=== PATIENT | female | born 1950 | race Caucasian/White ===

== ENCOUNTER 2024-10-16 08:18 | Outpatient (OUT) | payer MEDICARE, OTHER, SELFPAY ==
[2024-10-16 09:02] LABS: Hematocrit 39.8 % (36.0-48.0); Hemoglobin 13.4 g/dL (12.0-16.0); Immature Granulocytes Abs Auto 0.01 10^3/uL (0.00-0.03); Immature Granulocytes Pct Auto 0.2 % (0.0-0.5); Lymphocytes Absolute Auto 1.7 10^3/uL (1.2-3.8); Mean Corpuscular HGB Conc 33.7 g/dL (29.9-35.2); Mean Corpuscular Hemoglobin 29.4 pg (26.7-34.0); Mean Corpuscular Volume 87.3 fL (81.0-99.0); Platelet Count 331 10^3/uL (150-450); Red Blood Count 4.56 10^6/uL (4.20-5.40); White Blood Count 5.8 10^3/uL (4.0-11.0)
[2024-10-16 09:20] LABS: Alanine Aminotransferase 30 U/L (14-59); Albumin Globulin Ratio 1.0; Albumin Level 3.7 g/dL (3.4-5.0); Alkaline Phosphatase 100 U/L (46-116); Anion Gap 10.1; Aspartate Amino Transferase 22 U/L (15-37); Blood Urea Nitrogen 11.0 mg/dL (7.0-18.0); Calcium 8.8 mg/dL (8.5-10.1); Carbon Dioxide 31.0 mmol/L (21.0-32.0); Chloride 107 mmol/L (98-107); Estimated GFR (African America >60 (>=60 mL/min/1.73m^2); Estimated GFR (Non-African Ame >60 (>=60 mL/min/1.73m^2); Globulin 3.8 g/dL; Glucose 100 mg/dL (74-106); Magnesium 2.2 mg/dL (1.8-2.4); Potassium 4.1 mmol/L (3.5-5.1); Sodium 144 mmol/L (136-145); Total Protein 7.5 g/dL (6.4-8.2); Uric Acid 4.2 mg/dL (2.6-6.0)
== END 2024-10-16 08:19 | disposition home or self-care (01) ==
LOC: LAB 08:30
PROVIDERS: PCP Family Medicine
DX: L50.1 Idiopathic urticaria (principal)
CPT/HCPCS: 36415; 80053; 80158; 83735; 84550; 85025

== ENCOUNTER 2024-11-17 14:50 | Outpatient (OUT) | payer MEDICARE, OTHER, SELFPAY ==
--- OUTSIDE RECORDS SUMMARY | 2024-11-17 14:53 | XMS_ITS | Encounter Summary ---
Author Organization [facility] Address [address] [place] [address] Care Team Providers Care Fish Header Name Role Phone Luciana Phan MD Primary Care Provider [phone] Claudette Buck OD Unavailable Encounter Details Date Type Department Care Team (Late st Contact Info) Description 10/30/2023 Orders Only [facility] [facility] [address] [place] [address] Kvng Villatoro MD [address] [facility] [address] [place] [address] Chronic idiopathic urticaria (Primary Dx); senior care current use of cyclosporine Social History Tobacco Use Types Packs/Day Years Used Date Smoking Tobacco: Never Smokeless Tobacco: Never Alcohol Use Standard Drinks/Week Comments Yes 0 (1 standard drink = 0.6 oz pure alcohol) Caffeine: 1-2 cups/day; tea 2-3 cups per/day, 1-2 drinks less than monthly in the past year AUDIT-C Answer Date Recorded Q1: How often do you have a drink containing alc ohol? Monthly or less 02/13/2023 Q2: How many drinks containi ng alcohol do you have on a typical day when you are drinking? 1 or 2 02/13/2023 Q3: How often do you have si x or more drinks on one occasion? Never 02/13/2023 Comments Unknown Sex and Gender Information Value Date Recorded Sex Assigned at Not on file Legal Sex Female 8:35 PM EDT Gender Identity Not on file Sexual Orientation Not on file documented as of this encounter Plan of Treatment Upcoming Encounters Date Type Department Care Team (Late st Contact Info) Description 11/25/2024 9:40 AM EDT Office Visit [facility] [place] [facility] [address] [place] [address] Kvng Villatoro MD [address] [place] [address] 11/25/2024 10:00 AM EDT Clinical Support [facility] [place] [facility] [address] [place] [address] 03/23/2025 10:45 AM EST Office Visit [facility] [address] [place] [address] Gil Zarate, [address] [place] [address] documented as of this encounter Procedures Procedure Name Priority Date/Time Associated Diagnosis Comments CYCLOSPORINE A THROUGH,BLOOD Routine 11/08/2023 8:51 AM EDT 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 CBC (INCLUDES DIFF/PLT) Routine 11/08/2023 8:51 AM EDT TSH Routine 11/08/2023 8:51 AM EDT COMPREHENSIVE METABOLIC PANEL Routine 11/08/2023 8:51 AM EDT documented in this encounter Results * TSH (11/08/2023 8:51 AM EDT) TSH 3.06 0.40 - 4.50 mIU/L [facility] 11/08/2023 8:51 AM EDT 11/08/2023 8:51 AM EDT Narrative [facility] - 11/09/2023 12:06 PM EDT FASTING:YES FASTING: YES Resulting Agency Comment Performing Organization Information Site ID: QPT Name: [facility] Address: [address] [place] [address], [address] [place] [address] Director: Buck Rajput MD us Kvng Villatoro MD LAB BLOOD ORDERABLES Final Re sult Performing Organization Address [facility] Co de Phone Number [facility] * (ABNORMAL) CBC and differential (11/08/2023 8:51 AM EDT) WHITE BLOOD CELL COUNT 7.6 3.8 - 10.8 Thousand/u L [facility] RED BLOOD CELL COUNT 4.88 3.80 - 5.10 Million/uL [facility] HEMOGLOBIN 14.6 11.7 - 15.5 g/dL [facility] HEMATOCRIT 43.8 35.0 - 45.0 % [facility] MCV 89.8 80.0 - 100.0 fL [facility] MCH 29.9 27.0 - 33.0 pg [facility] MCHC 33.3 32.0 - 36.0 g/dL [facility] RDW 12.3 11.0 - 15.0 % [facility] PLATELET COUNT 424(H) 140 - 400 Thousand/u L [facility] MPV 9.4 7.5 - 12.5 fL [facility] ABSOLUTE NEUTROPHILS 4,454 1,500 - 7,800 cells/uL [facility] ABSOLUTE LYMPHOCYTES 2,440 850 - 3,900 cells/uL [facility] ABSOLUTE MONOCYTES 562 200 - 950 cells/uL [facility] ABSOLUTE EOSINOPHILS 122 15 - 500 cells/uL [facility] ABSOLUTE BASOPHILS 23 0 - 200 cells/uL [facility] NEUTROPHILS 58.6 % [facility] LYMPHOCYTES 32.1 % [facility] MONOCYTES 7.4 % [facility] EOSINOPHILS 1.6 % [facility] BASOPHILS 0.3 % [facility] 11/08/2023 8:51 AM EDT 11/08/2023 8:51 AM EDT Narrative [facility] - 11/09/2023 12:06 PM EDT FASTING:YES FASTING: YES Resulting Agency Comment Performing Organization Information Site ID: QPT Name: [facility] Address: [address] [place] [address], [address] [place] [id number] Director: Buck Rajput MD us Kvng Villatoro MD LAB BLOOD ORDERABLES Final Re sult Performing Organization Address [facility] Co de Phone Number [facility] * Comprehensive metabolic panel (11/08/2023 8:51 AM EDT) Glucose 95 65 - 99 mg/dL [facility] Comment: Fasting reference interval BUN 14 7 - 25 mg/dL [facility] Creatinine 0.69 0.60 - 1.00 mg/dL [facility] EGFR 91 > OR = 60 mL/min/1. 73m2 [facility] BUN/CREATININE RATIO SEE NOTE: 6 - 22 (calc) [facility] Comment: Not Reported: BUN and Creatinine are within reference range. Sodium 143 135 - 146 mmol/L [facility] Potassium, Bld 4.5 3.5 - 5.3 mmol/L [facility] Chloride 105 98 - 110 mmol/L [facility] Carbon Dioxide 30 20 - 32 mmol/L [facility] Calcium 9.5 8.6 - 10.4 mg/dL [facility] PROTEIN, TOTAL 7.3 6.1 - 8.1 g/dL [facility] ALBUMIN 4.5 3.6 - 5.1 g/dL [facility] GLOBULIN 2.8 1.9 - 3.7 g/dL (calc) [facility] ALBUMIN/GLOBULIN RATIO 1.6 1.0 - 2.5 (calc) [facility] BILIRUBIN, TOTAL 0.5 0.2 - 1.2 mg/dL [facility] ALKALINE PHOSPHATASE 81 37 - 153 U/L [facility] AST 31 10 - 35 U/L [facility] ALT 24 6 - 29 U/L [facility] 11/08/2023 8:51 AM EDT 11/08/2023 8:51 AM EDT Narrative [facility] - 11/09/2023 12:06 PM EDT FASTING:YES FASTING: YES Resulting Agency Comment Performing Organization Information Site ID: QPT Name: [facility] Address: [address] [place] [address], [address] [place] [phone] Director: Buck Rajput MD us Kvng Villatoro MD LAB BLOOD ORDERABLES Final Re sult [facility] * (ABNORMAL) CYCLOSPORINE A THROUGH,BLOOD (11/08/2023 8:51 AM EDT) CYCLOSPORINE A TROUGH, BLOOD 55(L) mcg/L [facility] COMMENT [facility] Comment: No definitive therapeutic or toxic ranges have been established. Optimal blood drug levels are influenced by type of transplant, patient response, time post- transplant, co-administration of other drugs, and drug formulation. The following trough ranges are suggested guidelines: Kidney Transplantation: 100-200 mcg/L Other Organ Transplant: 200-300 mcg/L This test was performed as an immunoassay on a Borqs platform. Values obtained from different assay methods cannot be used interchangeably. 11/08/2023 8:51 AM EDT 11/08/2023 8:51 AM EDT Narrative [facility] - 11/09/2023 12:06 PM EDT FASTING:YES FASTING: YES Resulting Agency Comment Performing Organization Information Site ID: QA Name: [facility] Address: [address] [place] [address] [place] [phone] Director: Db Whitt MD Kvng Villatoro MD LAB BLOOD ORDERABLES Final Re sult [facility] documented in this encounter Visit Diagnoses Diagnosis Chronic idiopathic urticaria- Primary Idiopathic urticaria senior care current use of cyclosporine documented in this encounter Care Teams Fish Header Relationship Specialty Start Date End Date Luciana Phan MD PCP - General Family Medicine 07/28/22 Claudette Buck OD [address] [place] [address] Referring Physician Optometry 03/17/24 documented as of this encounter
--- OUTSIDE RECORDS SUMMARY | 2024-11-17 14:53 | XMS_ITS | Clinical Summary ---
Author Organization [facility] Address [address] [place] [address] Care Team Providers Care Kapok Machine Operator Name Role Phone Luciana Phan MD Primary Care Provider [phone] Claudette Buck OD Unavailable Allergies No known active allergies Medications loratadine (Claritin Reditabs) 10 MG disintegrating tablet Take 10 mg by mouth in the morning. Active cycloSPORINE (SandIMMUNE) 25 MG capsuleIndications: Idiopathic urticaria TAKE 2 CAPSULES BY MOUTH TWICE DAILY 240 capsule 1 5 Active famotidine (Pepcid) 20 MG tabletIndications:I diopathic urticaria TAKE 1 TABLET IN THE MORNING AND 1 TABLET BEFORE BEDTIME 180 tablet 3 5 Active montelukast (Singulair) 10 MG tabletIndications:I diopathic urticaria TAKE 1 TABLET AT BEDTIME 90 tablet 3 5 Active Hospital, Clinic, or Other Facility Administered Medication Ordered Dose Route Frequency Start Date End Date Status Omalizumab solution prefilled syringe 300 mgIndications:Chronic idiopathic urticaria 300 mg SC Once 10/28/2024 10/28/2024 Ende d Active Problems Problem Noted Date Diagnosed Date Bilateral posterior capsular opacification 03/17 Fuchs' corneal dystrophy of both eyes 03/17/2024 senior care current use of cyclosporine 01/16/2023 S/P left knee surgery 08/28/2022 Idiopathic urticaria 08/02/2022 Overview (08/02/2022): Failed Xolair and has been responding well to cyclosporine 50 mg po BID Closed nondisplaced transver se fracture of left patella with routine healing 08/01/2022 Encounters Date Type Department Care Team Description 10/28/2024 11:20 AM EDT Office Visit [facility] [place] [facility] [address] [place] [address] Kvng Villatoro MD Chronic idiopathic urticaria (Primary Dx) 10/28/2024 Bamboo flowsheet [facility] [place] [address] [place] [address] Kvng Villatoro MD 10/28/2024 Travel 10/07/2024 Refill [facility] [place] [address] [place] [address] Kvng Villatoro MD Idiopathic urticaria 09/30/2024 9:40 AM EDT Office Visit [facility] [address] [place] [address] Kvng Villatoro MD Chronic idiopathic urticaria (Primary Dx) 09/30/2024 Bamboo flowsheet [facility] [address] [place] [address] Kvng Villatoro MD 09/30/2024 Travel 09/23/2024 Orders Only [facility] External Department Unsolicited Kvng Villatoro MD 09/01/2024 Refill [facility] [place] [facility] [address] [place] [address] Kvng Villatoro MD Idiopathic urticaria 08/26/2024 10:20 AM EDT Office Visit [facility] [address] [place] [address] Kvng Villatoro MD Chronic idiopathic urticaria (Primary Dx) 08/26/2024 Bamboo flowsheet [facility] [address] [place] [address] Kvng Villatoro MD 08/26/2024 Travel from Last 3 Months Family History Medical History Relation Name Comments No Known Problems Brother 1 Diabetes Mother Heart disease Mother Stroke Mother No Known Problems Sister 1 No Known Problems Son 2 Relation Name Status Comments Brother Father Mother Other Spouse Alive Sister Son Alive Social History Tobacco Use Types Packs/Day Years Used Date Smoking Tobacco: Never Smokeless Tobacco: Never Tobacco Cessation:Counseling Given: Not Answered Alcohol Use Standard Drinks/Week Comments Yes 0 [...] on file Sexual Orientation Not on file Last Filed Vital Signs Vital Sign Reading Time Taken Comments Blood Pressure 114/80 10/28/2024 10:46 AM EDT Pulse - - Temperature - - Respiratory Rate - - Oxygen Saturation - - Inhaled Oxygen Concentration - - Weight 75.3 kg (166 lb) 10/28/2024 10:46 AM EDT Height 172.7 cm (5' 8 ) 06/05/2023 9:54 AM EDT Body Mass Index 25.24 06/05/2023 9:54 AM EDT Plan of Treatment Upcoming Encounters Date Type Department Care Team (Late st Contact Info) Description 11/25/2024 9:40 AM EDT Office Visit [facility] [place] [address] [place] [address] Kvng Villatoro MD [address] [place] [address] 11/25/2024 10:00 AM EDT Clinical Support [facility] [place] [facility] [address] [place] [phone] 03/23/2025 10:45 AM EST Office Visit [facility] [address] [place] [address] Gil Zarate DO [address] [place] [address] Health Maintenance Due Date Last Done Comments CT Colonography 1949 Colonoscopy 1950 Colorectal Cancer Screening 1950 FIT-DNA 1950 FIT 1949 FOBT 1950 Sigmoidoscopy 1950 Influenza Vaccine (#1) 2024 4, 12/07/2022, 01/02/2022, Additional history exists Pneumococcal Vaccine: 65+ Years Completed 12/11/2018, 12/07/2015, 12/03/2015 Procedures Procedure Name Priority Date/Time Associated Diagnosis Comments CYCLOSPORINE LEVEL Routine 09/23/2024 10 :28 AM EDT SPECIMEN STATUS REPORT Routine 10:28 AM EDT MAGNESIUM Routine 09/23/2024 10:28 AM EDT COMPREHENSIVE METABOLIC PANEL Routine 09/23/2024 10:28 AM EDT CBC (INCLUDES DIFF/PLT) Routine 09/23/2024 10:28 AM EDT from Last 3 Months Results * Specimen Status Report (09/23/2024 10:28 AM EDT) SPECIMEN STATUS REPORT Comment [facility] Comment: Franko Abbrev CMP14 Default Ambbrenda Moorerev CMP14 Default A hand-written panel/profile was received from your office. In accordance with the [facility] Ambiguous Test Code Policy dated September 2002, we have completed your order by using the closest currently or formerly recognized AMA panel. We have assigned Comprehensive Metabolic Panel (14), Test Code #876719 to this request. If this is not the testing you wished to receive on this specimen, please contact the [facility] Client Inquiry/Technical Services Department to clarify the test order. We appreciate your business. 09/23/2024 10:2 8 AM EDT 09/23/2024 Narrative [facility] - 09/23/2024 6:07 PM EDT Performed at: - [facility] [address], [address], [place], [place] [id number] Beet Topper: Klarissa Rodriguez MD, Phone: [phone] Kvng Villatoro MD LAB BLOOD ORDERABLES Final Re sult Performing Organization Address [facility] Co de Phone Number [facility] * (ABNORMAL) Cyclosporine level (09/23/2024 10:28 AM EDT) Pathologist [facility] CYCLOSPORINE, LC-MS/MS 12(L) 100 - 400 ng/mL [facility] Comment: Therapeutic: Renal Transplant 100 - 250 Liver Transplant 100 - 400 Cardiac Transplant 100 - 400 Bone Marrow 200 - 300 Assay performed by Liquid Chromatography Tandem Mass Spectrometry (LC-MS/MS) If preferred testing methodology for Cyclosporine is Liquid Chromatography Tandem Mass Spectrometry (LC-MS/MS) please use test code 193828. For testing performed by Immunoassay, please use test code 400020. 09/23/2024 10:2 8 AM EDT 09/23/2024 Narrative [facility] - 09/25/2024 6:07 PM EDT Test(s) 353060-[id number], LC-MS/MS was developed and its performance characteristics determined by [facility]. It has not been cleared or approved by the Food and Drug Administration. Performed at: [address] [id number] Beet Topper: Roberto Connelly MD, Phone: [phone] Kvng Villatoro MD LAB BLOOD ORDERABLES Final Re sult Performing Organization Address [facility]/ZIP Co de Phone Number [facility] * CBC and differential (09/23/2024 10:28 AM EDT) WBC 5.9 3.4 - 10.8 x10E3/uL [facility] RBC 4.55 3.77 - 5.28 x10E6/uL [facility] Hgb 13.5 11.1 - 15.9 g/dL [facility] Hct 39.8 34.0 - 46.6 % [facility] MCV 88 79 - 97 fL [facility] MCH 29.7 26.6 - 33.0 pg [facility] MCHC 33.9 31.5 - 35.7 g/dL [facility] RDW 11.8 11.7 - 15.4 % [facility] Platelets 348 150 - 450 x10E3/uL [facility] Neutrophils 58 Not Estab. % [facility] Lymphs 28 Not Estab. % [facility] Monocytes 10 Not Estab. % [facility] Eos 3 Not Estab. % [facility] Basos 1 Not Estab. % [facility] Neutrophils Abs 3.5 1.4 - 7.0 x10E3/uL [facility] Lymphs Abs 1.7 0.7 - 3.1 x10E3/uL [facility] MonocytesAbs 0.6 0.1 - 0.9 x10E3/uL [facility] Eos Abs 0.2 0.0 - 0.4 x10E3/uL [facility] Baso Abs 0.0 0.0 - 0.2 x10E3/uL [facility] Immature Granulocytes 0 Not Estab. % [facility] Immature Grans Abs 0.0 0.0 - 0.1 x10E3/uL [facility] 09/23/2024 10:2 8 AM EDT 09/23/2024 Narrative [facility] - 09/23/2024 6:07 PM EDT Performed at: 01 - [facility] [address] [address], [address], [place], [place] [id number] Beet Topper: Klarissa Rodriguez MD, Phone: [phone] Kvng Villatoro MD LAB BLOOD ORDERABLES Final Re sult [facility] * Magnesium (09/23/2024 10:28 AM EDT) [facility] Magnesium 2.2 1.6 - 2.3 mg/dL [facility] 09/23/2024 10:2 8 AM EDT 09/23/2024 Narrative [facility] - 09/23/2024 6:07 PM EDT Performed at: 01 - [facility] [address], [address] [place] [id number] Beet Topper: Klarissa Rodriguez MD, Phone: [phone] Kvng Villatoro MD LAB BLOOD ORDERABLES Final Re sult [facility] * Comprehensive metabolic panel (09/23/2024 10:28 AM EDT) [facility] Glucose 92 70 - 99 mg/dL [facility] BUN 13 8 - 27 mg/dL [facility] Creat 0.63 0.57 - 1.00 mg/dL [facility] EGFR 92 >59 mL/min/1.7 3 [facility] BUN/Creat Ratio 21 12 - 28 [facility] Sodium 141 134 - 144 mmol/L [facility] Potassium 4.3 3.5 - 5.2 mmol/L [facility] Chloride 105 96 - 106 mmol/L [facility] Carbon Dioxide 26 20 - 29 mmol/L [facility] Calcium 9.4 8.7 - 10.3 mg/dL [facility] Protein Total 6.8 6.0 - 8.5 g/dL [facility] Albumin 4.5 3.8 - 4.8 g/dL [facility] Globulin Total 2.3 1.5 - 4.5 g/dL [facility] Bili Total 0.4 0.0 - 1.2 mg/dL [facility] Alk Phosphatase 104 44 - 121 IU/L [facility] AST 30 15 - 59 IU/L [facility] ALT 27 0 - 35 IU/L [facility] 09/23/2024 10:2 8 AM EDT 09/23/2024 Narrative [facility] - 09/23/2024 6:07 PM EDT Performed at: 01 - [facility] [place] [address], [place] [id number] Beet Topper: Klarissa Rodriguez MD, Phone: [phone] us Kvng Villatoro MD LAB BLOOD ORDERABLES Final Re sult [facility] from Last 3 Months Insurance MEDICARE [facility] Care Teams Kapok Machine Operator Relationship Specialty Start Date End Date Luciana Phan MD PCP - General Family Medicine 07/28/22 Claudette Buck OD [address] [place] [phone] Referring Physician Optometry 03/17/24
--- OUTSIDE RECORDS SUMMARY | 2024-11-17 14:53 | XMS_ITS | Encounter Summary ---
Author Organization [facility] Address [address] [facility] [place] [address] Care Team Providers Care Ice Hockey Coach Name Role Phone Luciana Phan MD Primary Care Provider [phone] Claudette Buck OD Unavailable Encounter Details Date Type Department Care Team (Late Contact Info) Description 12/18/2022 Abstract [facility] [place] [facility] [address] [place] [address] Kvng Villatoro MD [address] [facility] [address] [place] [address] Social History Tobacco Use Types Packs/Day Years Used Date Smoking Tobacco: Never Smokeless Tobacco: Never Tobacco Cessation:Counseling Given: Not Answered Alcohol Use Standard Drinks/Week Comments Yes 0 (1 standard drink = 0.6 oz pure alcohol) Caffeine: 1-2 cups/day; tea 2-3 cups per/day, 1-2 drinks less than monthly in the past year Comments Unknown Sex and Gender Information Value Date Recorded Sex Assigned at Not on file Legal Sex Female 8:35 PM EDT Gender Identity Not on file Sexual Orientation Not on file documented as of this encounter Plan of Treatment Upcoming Encounters Date Type Department Care Team (Late Contact Info) Description 11/25/2024 9:40 AM EDT Office Visit [facility] [place] [facility] [address] [place] [phone] Kvng Villatoro MD [address] [facility] [address] [place] [address] 11/25/2024 10:00 AM EDT Clinical Support [facility] [place] [facility] [address] [place] [phone] 03/23/2025 10:45 AM EST Office Visit [facility] [address] [place] [phone] Gil Zarate, [address] [place] [address] documented as of this encounter Visit Diagnoses Not on filedocumented in this encounter Care Teams Ice Hockey Coach Relationship Specialty Start Date End Date Luciana Phan MD PCP - General Family Medicine 07/28/22 Claudette Buck OD [address] [place] [address] Referring Physician Optometry 03/17/24 documented as of this encounter
--- OUTSIDE RECORDS SUMMARY | 2024-11-17 14:53 | XMS_ITS | Encounter Summary ---
Author Organization [facility] Address [address] [facility] [place] [address] Care Team Providers Care Viner Operator Name Role Phone Luciana Phan MD Primary Care Provider [phone] Claudette Buck OD Unavailable Encounter Details Date Type Department Care Team (Late st Contact Info) Description 09/07/2022 Abstract [facility] [address] [place] [address] Maxim Shah, PT [address] [place] [address] Social History Tobacco Use Types Packs/Day Years Used Date Smoking Tobacco: Never Smokeless Tobacco: Never Alcohol Use Standard Drinks/Week Comments Yes 0 (1 standard drink = 0.6 oz pure alcohol) Caffeine: 1-2 cups/day; tea 2-3 cups per/day Comments Unknown Sex and Gender Information Value Date Recorded Sex Assigned at Not on file Legal Sex Female 8:35 PM EDT Gender Identity Not on file Sexual Orientation Not on file documented as of this encounter Plan of Treatment Upcoming Encounters Date Type Department Care Team (Late st Contact Info) Description 11/25/2024 9:40 AM EDT Office Visit [facility] [place] [facility] [address] [place] [address] Kvng Villatoro MD [address] [place] [address] 11/25/2024 10:00 AM EDT Clinical Support [facility] [place] [facility] [address] [place] [phone] 03/23/2025 10:45 AM EST Office Visit [facility] [address] [place] [phone] Gil Zarate, DO [address] [place] [address] documented as of this encounter Visit Diagnoses Not on filedocumented in this encounter Care Teams Viner Operator Relationship Specialty Start Date End Date Luciana Phan MD PCP - General Family Medicine 07/28/22 Claudette Buck OD [address] [place] [address] Referring Physician Optometry 03/17/24 documented as of this encounter
--- OUTSIDE RECORDS SUMMARY | 2024-11-17 14:53 | XMS_ITS | Encounter Summary ---
Author Organization [facility] Address [address] [facility] [place] [address] Care Team Providers Care Circulator Name Role Phone Luciana Phan MD Primary Care Provider [phone] Claudette Buck OD Unavailable Encounter Details Date Type Department Care Team (Late Contact Info) Description 07/25/2022 Abstract [facility] [facility] [address] [place] [address] Kvng Villatoro MD [address] [facility] [address] [place] [address] Social History Tobacco Use Types Packs/Day Years [...] 11/25/2024 9:40 AM EDT Office Visit [facility] [place] [facility] [address] [place] [address] Kvng Villatoro MD [address] [facility] [address] [place] [address] 11/25/2024 10:00 AM EDT Clinical Support [facility] [place] [facility] [address] [place] [phone] 03/23/2025 10:45 AM EST Office Visit [facility] [address] [place] [phone] Gil Zarate DO [address] [place] [address] documented as of this encounter Visit Diagnoses Not on filedocumented in this encounter Care Teams Circulator Relationship Specialty Start Date End Date Luciana Phan MD PCP - General Family Medicine 07/28/22 Clauedtte Buck OD [address] [place] [address] Referring Physician Optometry 03/17/24 documented as of this encounter
== END 2024-11-17 14:51 | disposition home or self-care (01) ==
LOC: RAD 14:50
PROVIDERS: PCP Family Medicine; Visit Provider Family Medicine
DX: Z78.0 Asymptomatic menopausal state (principal); M85.80 Other specified disorders of bone density and structure, unspecified site
CPT/HCPCS: 77080

== ENCOUNTER 2024-11-18 08:17 | Outpatient (OUT) | payer MEDICARE, OTHER, SELFPAY ==
[2024-11-18 09:36] LABS: Thyroid Stimulating Hormone 1.515 uIU/mL (0.358-3.740)
== END 2024-11-18 08:18 | disposition home or self-care (01) ==
LOC: LAB 08:18
PROVIDERS: PCP Family Medicine; Visit Provider Family Medicine
DX: E03.9 Hypothyroidism, unspecified (principal)
CPT/HCPCS: 36415; 84439; 84443

== ENCOUNTER 2024-11-18 08:23 | Outpatient (OUT) | payer MEDICARE, OTHER, SELFPAY ==
[2024-11-18 09:27] LABS: Alanine Aminotransferase 33 U/L (14-59); Albumin Globulin Ratio 0.9; Albumin Level 3.6 g/dL (3.4-5.0); Alkaline Phosphatase 92 U/L (46-116); Anion Gap 11.5; Aspartate Amino Transferase 28 U/L (15-37); Blood Urea Nitrogen 11.0 mg/dL (7.0-18.0); Calcium 8.8 mg/dL (8.5-10.1); Carbon Dioxide 28.6 mmol/L (21.0-32.0); Chloride 107 mmol/L (98-107); Estimated GFR (African America >60 (>=60 mL/min/1.73m^2); Estimated GFR (Non-African Ame >60 (>=60 mL/min/1.73m^2); Globulin 3.8 g/dL; Glucose 92 mg/dL (74-106); Potassium 4.1 mmol/L (3.5-5.1); Sodium 143 mmol/L (136-145); Total Protein 7.4 g/dL (6.4-8.2); Uric Acid 4.9 mg/dL (2.6-6.0)
[2024-11-18 09:54] LABS: Hematocrit 38.1 % (36.0-48.0); Hemoglobin 13.1 g/dL (12.0-16.0); Immature Granulocytes Abs Auto 0.02 10^3/uL (0.00-0.03); Immature Granulocytes Pct Auto 0.4 % (0.0-0.5); Lymphocytes Absolute Auto 1.8 10^3/uL (1.2-3.8); Mean Corpuscular HGB Conc 34.4 g/dL (29.9-35.2); Mean Corpuscular Hemoglobin 29.8 pg (26.7-34.0); Mean Corpuscular Volume 86.8 fL (81.0-99.0); Platelet Count 323 10^3/uL (150-450); Red Blood Count 4.39 10^6/uL (4.20-5.40); White Blood Count 5.6 10^3/uL (4.0-11.0)
== END 2024-11-18 08:24 | disposition home or self-care (01) ==
LOC: LAB 08:25
PROVIDERS: PCP Family Medicine
DX: L50.1 Idiopathic urticaria (principal); E03.9 Hypothyroidism, unspecified
CPT/HCPCS: 36415; 80053; 80158; 84439; 84443; 84550; 85025

== ENCOUNTER 2024-12-16 08:23 | Outpatient (OUT) | payer MEDICARE, OTHER, SELFPAY ==
--- OUTSIDE RECORDS SUMMARY | 2024-12-16 08:28 | XMS_ITS | Encounter Summary ---
Author Organization [facility] Address [address] [place] [address] Care Team Providers Care Director Of Women'S Services Name Role Phone Luciana Phan MD Primary Care Provider [phone] Claudette Buck OD Unavailable Encounter Details Date Type Department Care Team (Late st Contact Info) Description 09/07/2022 Abstract [facility] [address] [place] [address] Maxim Shah, PT [address] [place] [id number] Social History Tobacco Use Types Packs/Day Years [...] Care Team (Late st Contact Info) Description 12/23/2024 10:00 AM EDT Clinical Support [facility] [address] [place] [address] 12/23/2024 10:40 AM EDT Office Visit [facility] [address] [place] [address] Kvng Villatoro MD [address] [place] [address] 03/23/2025 10:45 AM EST Office Visit [facility] [address] [place] [phone] Gil Zarate DO [address] [place] [address] documented as of this encounter Visit Diagnoses Not on filedocumented in this encounter Care Teams Director Of Women'S Services Relationship Specialty Start Date End Date Luciana Phan MD PCP - General Family Medicine 07/28/22 Claudette Buck OD [address] [place] [address] Referring Physician Optometry 03/17/24 documented as of this encounter
--- OUTSIDE RECORDS SUMMARY | 2024-12-16 08:28 | XMS_ITS | Encounter Summary ---
Author Organization [facility] Address [address] [facility] [place] [address] Care Team Providers Care Saw Setter Name Role Phone Luciana Phan MD Primary Care Provider [phone] Claudette Buck OD Unavailable Encounter Details Date Type Department Care Team (Late st Contact Info) Description 10/30/2023 Orders Only [facility] [address] [place] [address] Kvng Villatoro MD [address] [facility] [address] [place] [address] Chronic idiopathic urticaria (Primary Dx); custodial current use of cyclosporine Social History Tobacco [...] Description 12/23/2024 10:00 AM EDT Clinical Support [facility] [address] [place] [address] 12/23/2024 10:40 AM EDT Office Visit [facility] [address] [place] [address] Kvng Villatoro MD [address] [place] [address] 03/23/2025 10:45 AM EST Office Visit [facility] [address] [place] [address] Gil Zarate DO [address] [place] [address] documented as of this encounter Procedures Procedure Name Priority Date/Time Associated Diagnosis Comments CYCLOSPORINE A THROUGH,BLOOD Routine 11/08/2023 8:51 AM EDT Chronic idiopathic urticaria 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 Address: [address] [place] [address], [address] [place] [address] Director: Buck Rajput MD us Kvng Villatoro MD LAB BLOOD ORDERABLES Final Re sult Performing Organization Address [facility] Co de Phone Number [facility] * (ABNORMAL) [...] Performing Organization Information Site ID: QPT Name: [employer] [facility] [facility] Address: [address] [place] [address], [address] [place] [phone] Director: Buck Rajput MD us Kvng Villatoro MD LAB BLOOD ORDERABLES Final Re sult Performing Organization Address [facility] Co de Phone Number [facility] * Comprehensive [...] Performing Organization Information Site ID: QPT Name: [employer] [facility] Address: [address] [place] [address], [address] [place] [phone] Director: Buck Rajput MD us Kvng Villatoro [...] was performed as an immunoassay on a Elixr platform. Values obtained from different assay methods cannot be used interchangeably. 11/08/2023 8:51 AM EDT 11/08/2023 8:51 AM EDT Narrative [facility] - 11/09/2023 12:06 PM EDT FASTING:YES FASTING: YES Resulting Agency Comment Performing Organization Information Site ID: QA Name: [facility] Address: [address] [place] [address] [place] [phone] Director: Db Whitt MD Kvng Villatoro MD LAB BLOOD ORDERABLES Final Re sult [facility] documented in this encounter Visit Diagnoses Diagnosis Chronic idiopathic urticaria- Primary Idiopathic urticaria custodial current use of cyclosporine documented in this encounter Care Teams Saw Setter Relationship Specialty Start Date End Date Luciana Phan MD PCP - General Family Medicine 07/28/22 Claudette Buck OD [address] [place] [address] Referring Physician Optometry 03/17/24 documented as of this encounter
--- OUTSIDE RECORDS SUMMARY | 2024-12-16 08:28 | XMS_ITS | Encounter Summary ---
Author Organization [facility] Address [address] [place] [address] Care Team Providers Care Pelt Inspector Name Role Phone Luciana Phan MD Primary Care Provider [phone] Claudette Buck OD Unavailable Encounter Details Date Type Department Care Team (Late Contact Info) Description 12/18/2022 Abstract [facility] [address] [place] [address] Kvng Villatoro MD [address] [place] [address] Social History Tobacco Use Types Packs/Day Years [...] Department Care Team (Late Contact Info) Description 12/23/2024 10:00 AM EDT Clinical Support [facility] [address] [place] [address] 12/23/2024 10:40 AM EDT Office Visit [facility] [address] [place] [address] Kvng Villatoro MD [address] [place] [address] 03/23/2025 10:45 AM EST Office Visit [facility] [address] [place] [address] Gil Zarate, [address] [place] [address] documented as of this encounter Visit Diagnoses Not on filedocumented in this encounter Care Teams Pelt Inspector Relationship Specialty Start Date End Date Luciana Phan MD PCP - General Family Medicine 07/28/22 Claudette Buck OD [address] [place] [address] Referring Physician Optometry 03/17/24 documented as of this encounter
--- OUTSIDE RECORDS SUMMARY | 2024-12-16 08:28 | XMS_ITS | Encounter Summary ---
Author Organization [facility] Address [address] [place] [address] Care Team Providers Care Freight Team Associate Name Role Phone Luciana Phan MD Primary Care Provider [phone] Claudette Buck OD Unavailable Encounter Details Date Type Department Care Team (Late Contact Info) Description 07/25/2022 Abstract [facility] [address] [place] [address] Kvng Villatoro MD [address] [place] [address] Social History Tobacco Use Types Packs/Day Years [...] 12/23/2024 10:00 AM EDT Clinical Support [facility] [address] [place] [address] 12/23/2024 10:40 AM EDT Office Visit [facility] [address] [place] [address] Kvng Villatoro MD [address] [place] [address] 03/23/2025 10:45 AM EST Office Visit [facility] [address] [place] [address] Gil Zarate DO [address] [place] [address] documented as of this encounter Visit Diagnoses Not on filedocumented in this encounter Care Teams Freight Team Associate Relationship Specialty Start Date End Date Luciana Phan MD PCP - General Family Medicine 07/28/22 Claudette Buck OD [address] [place] [address] Referring Physician Optometry 03/17/24 documented as of this encounter
--- OUTSIDE RECORDS SUMMARY | 2024-12-16 08:28 | XMS_ITS | Clinical Summary ---
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 01/16/2023 S/P left knee surgery 08/28/2022 Idiopathic urticaria 08/02/2022 Overview (08/02/2022): Failed Xolair and has been responding well to cyclosporine 50 mg po BID Closed nondisplaced transver se fracture of left patella with routine healing 08/01/2022 Encounters Date Type Department Care Team Description 11/25/2024 9:40 AM EDT Office Visit [facility] [address] [place] [address] Kvng Villatoro MD Chronic idiopathic urticaria (Primary Dx); 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 11/25/2024 Bamboo flowsheet [facility] [address] [place] [address] Kvng Villatoro MD 11/25/2024 Travel 10/28/2024 11:20 AM EDT Office Visit [facility] [address] [place] [address] Kvng Villatoro MD Chronic idiopathic urticaria (Primary Dx) 10/28/2024 Bamboo flowsheet [facility] [address] [place] [address] Kvng Villatoro MD 10/28/2024 Travel 10/07/2024 Refill [facility] [facility] [address] [place] [address] Kvng Villatoro MD Idiopathic urticaria 09/30/2024 9:40 AM EDT Office Visit [facility] [facility] [address] [place] [address] Kvng Villatoro MD Chronic idiopathic urticaria (Primary Dx) 09/30/2024 Bamboo flowsheet [facility] [address] [place] [address] Kvng Villatoro MD 09/30/2024 Travel 09/23/2024 Orders Only [facility] External Department Unsolicited Kvng Villatoro MD from Last 3 Months Family History Medical [...] Sign Reading Time Taken Comments Blood Pressure 131/70 11/25/2024 9:42 AM EDT Pulse - - Temperature - - Respiratory Rate - - Oxygen Saturation - - Inhaled Oxygen Concentration - - Weight 74.4 kg (164 lb) 11/25/2024 9:42 AM EDT Height 172.7 cm (5' 8 ) 06/05/2023 9:54 AM EDT Body Mass Index 24.94 06/05/2023 9:54 AM EDT Plan of Treatment Upcoming Encounters Date Type Department Care Team (Late st Contact Info) Description 12/23/2024 10:00 AM EDT Clinical Support [facility] [address] [address] 12/23/2024 10:40 AM EDT Office Visit [facility] [address] [facility] [address] [place] [address] Kvng Villatoro MD [address] [facility] [address] [place] [address] 03/23/2025 10:45 AM EST Office Visit [facility] [address] [facility] [address] [place] [address] Gil Zarate, DO [address] [place] [address] Health Maintenance Due Date Last Done Comments CT Colonography 1950 Colonoscopy 1950 Colorectal Cancer Screening 1950 FIT-DNA 1950 FIT 1950 FOBT 1950 Sigmoidoscopy 1950 Influenza Vaccine (#1) 2024 4, 12/07/2022, 01/02/2022, Additional history exists Pneumococcal Vaccine: 65+ Years Completed 12/11/2018, 12/07/2015, 12/03/2015 Procedures Procedure Name Priority Date/Time Associated Diagnosis Comments CYCLOSPORINE LEVEL Routine 12/08/2024 12 :34 PM EDT Chronic idiopathic urticaria 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 Blood Venous blood specimen / Unknown Kvng Villatoro MD LAB BLOOD ORDERABLES Final Re sult EXTERNAL LAB * Comprehensive metabolic panel (11/20/2024 1:42 PM EDT) Only the most recent of2 resultswithin the time period is included. Blood Venous blood specimen / Unknown Kvng Villatoro MD LAB BLOOD ORDERABLES Final Re sult Performing Organization Address [facility] Co de Phone Number EXTERNAL LAB * Specimen Status Report (09/23/2024 10:28 AM EDT) SPECIMEN STATUS REPORT Comment [facility] Comment: Franko Restrepo CMP14 Default Franko Restrepo CMP14 Default A hand-written panel/profile was received from your office. In accordance with the [facility] Ambiguous Test Code Policy dated September 2002, we have completed your order by using the closest currently or formerly recognized AMA panel. We have assigned Comprehensive Metabolic Panel (14), Test Code #923041 to this request. If this is not the testing you wished to receive on this specimen, please contact the [facility] Client Inquiry/Technical Services Department to clarify the test order. We appreciate your business. 09/23/2024 10:2 8 AM EDT 09/23/2024 Narrative [facility] - 09/23/2024 6:07 PM EDT Performed at: 01 - [address], [address], [place], [place] [id number] Extrusion Machine Operator: Klarissa Rodriguez MD, Phone: [phone] Kvng Villatoro MD LAB BLOOD ORDERABLES Final Re sult Performing Organization Address [facility] Co de Phone Number [facility] * CBC and differential (09/23/2024 10:28 AM [...] 09/23/2024 6:07 PM EDT Performed at: - [facility] [address] [facility], [address] [place] [phone] Extrusion Machine Operator: Klarissa Rodriguez MD, Phone: [phone] Kvng Villatoro MD LAB BLOOD ORDERABLES Final Re sult [facility] * Magnesium (09/23/2024 10:28 AM EDT) Magnesium 2.2 1.6 - 2.3 mg/dL [facility] 09/23/2024 10:2 8 AM EDT 09/23/2024 Narrative [facility] - 09/23/2024 6:07 PM EDT Performed at: [facility] - [facility] [address], [place] [id number] Extrusion Machine Operator: Klarissa Rodriguez MD, Phone: [phone] us Kvng Villatoro MD LAB BLOOD ORDERABLES Final Re sult [facility] from Last 3 Months Insurance MEDICARE [facility] Care Teams Administrative Hearing Officer Relationship Specialty Start Date End Date Luciana Phan MD PCP - General Family Medicine 07/28/22 Claudette Buck OD [address] [place] [address] Referring Physician Optometry 03/17/24
[2024-12-16 09:03] LABS: Hematocrit 40.4 % (36.0-48.0); Hemoglobin 14.0 g/dL (12.0-16.0); Immature Granulocytes Abs Auto 0.02 10^3/uL (0.00-0.03); Immature Granulocytes Pct Auto 0.3 % (0.0-0.5); Lymphocytes Absolute Auto 2.1 10^3/uL (1.2-3.8); Mean Corpuscular HGB Conc 34.7 g/dL (29.9-35.2); Mean Corpuscular Hemoglobin 30.5 pg (26.7-34.0); Mean Corpuscular Volume 88.0 fL (81.0-99.0); Platelet Count 359 10^3/uL (150-450); Red Blood Count 4.59 10^6/uL (4.20-5.40); White Blood Count 6.5 10^3/uL (4.0-11.0)
[2024-12-16 09:15] LABS: Alanine Aminotransferase 41 U/L (14-59); Albumin Globulin Ratio 1.0; Albumin Level 3.9 g/dL (3.4-5.0); Alkaline Phosphatase 108 U/L (46-116); Anion Gap 13.2; Aspartate Amino Transferase 29 U/L (15-37); Blood Urea Nitrogen 13.0 mg/dL (7.0-18.0); Calcium 9.6 mg/dL (8.5-10.1); Carbon Dioxide 31.4 mmol/L (21.0-32.0); Chloride 105 mmol/L (98-107); Estimated GFR (African America >60 (>=60 mL/min/1.73m^2); Estimated GFR (Non-African Ame >60 (>=60 mL/min/1.73m^2); Globulin 4.1 g/dL; Glucose 97 mg/dL (74-106); Magnesium 2.1 mg/dL (1.8-2.4); Potassium 4.6 mmol/L (3.5-5.1); Sodium 145 mmol/L (136-145); Total Protein 8.0 g/dL (6.4-8.2); Uric Acid 4.3 mg/dL (2.6-6.0)
== END 2024-12-16 08:24 | disposition home or self-care (01) ==
LOC: LAB 08:26
PROVIDERS: PCP Family Medicine
DX: L50.1 Idiopathic urticaria (principal); Z79.621 Long term (current) use of calcineurin inhibitor
CPT/HCPCS: 36415; 80053; 80158; 83735; 84550; 85025

== ENCOUNTER 2025-01-13 07:59 | Outpatient (OUT) | payer MEDICARE, OTHER, SELFPAY ==
[2025-01-13 09:08] LABS: Hematocrit 40.6 % (36.0-48.0); Hemoglobin 13.6 g/dL (12.0-16.0); Immature Granulocytes Abs Auto 0.01 10^3/uL (0.00-0.03); Immature Granulocytes Pct Auto 0.2 % (0.0-0.5); Lymphocytes Absolute Auto 2.2 10^3/uL (1.2-3.8); Mean Corpuscular HGB Conc 33.5 g/dL (29.9-35.2); Mean Corpuscular Hemoglobin 29.4 pg (26.7-34.0); Mean Corpuscular Volume 87.9 fL (81.0-99.0); Platelet Count 335 10^3/uL (150-450); Red Blood Count 4.62 10^6/uL (4.20-5.40); White Blood Count 6.4 10^3/uL (4.0-11.0)
[2025-01-13 09:12] LABS: Alanine Aminotransferase 49 U/L (14-59); Albumin Globulin Ratio 1.0; Albumin Level 3.6 g/dL (3.4-5.0); Alkaline Phosphatase 98 U/L (46-116); Anion Gap 11.2; Aspartate Amino Transferase 34 U/L (15-37); Blood Urea Nitrogen 13.0 mg/dL (7.0-18.0); Calcium 8.9 mg/dL (8.5-10.1); Carbon Dioxide 30.9 mmol/L (21.0-32.0); Chloride 106 mmol/L (98-107); Estimated GFR (African America >60 (>=60 mL/min/1.73m^2); Estimated GFR (Non-African Ame >60 (>=60 mL/min/1.73m^2); Globulin 3.5 g/dL; Glucose 98 mg/dL (74-106); Magnesium 2.2 mg/dL (1.8-2.4); Potassium 4.1 mmol/L (3.5-5.1); Sodium 144 mmol/L (136-145); Total Protein 7.1 g/dL (6.4-8.2); Uric Acid 4.3 mg/dL (2.6-6.0)
== END 2025-01-13 08:00 | disposition home or self-care (01) ==
LOC: LAB 08:01
PROVIDERS: PCP Family Medicine
DX: L50.1 Idiopathic urticaria (principal)
CPT/HCPCS: 36415; 80053; 80158; 83735; 84550; 85025